=== PATIENT | female | born 2000 | race African-American/Black ===

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

== ENCOUNTER 2018-02-24 13:23 | Emergency (ER) | payer BC ==
[~2018-02-24] VITALS: Ht 168.9 cm; Wt 105.2 kg
[~2018-02-24 13:23] MED LIST changes: +AMOX1TAB61 PO; +CEPH-264 PO; +ONDA4TAB10 SL; +SULF1TAB24 PO
[2018-02-24 13:30] VITALS: BP 148/70
[2018-02-24] MEDS ORDERED: IBUPROFEN 600 MG TABLET. PO ONE (14:00)
--- NOTE | 2018-02-24 14:11 | RAD ---
3 view study of the left ankle Clinical indications: Twisting injury today with pain and swelling FINDINGS: Lateral soft tissue swelling is evident. No acute fracture or dislocation or osteolytic process is seen. The mortise ankle joint is intact. IMPRESSION: No acute fracture. Electronically signed by: Trae Meza MD (02/24/2018 2:08 PM) [facility]
--- NOTE | 2018-02-24 14:16 | PHYS DOC ---
Past Medical History Past Medical History: Asthma, Other Additional Past Medical Histor: Seasonal allergies. Past Surgical History: No Surgical History Alcohol Use: None Drug Use: None Adult General Chief Complaint Chief Complaint: ANKLE PROBLEM HPI HPI Patient is a 17 year old female who presents with coming down the stairs today and missed the last up and twisted her left ankle and heard a pop. This happened at 1300 today. She rates her pain a 9 out of 10. States she didn't take any medication for. She has no known drug allergies. She takes Claritin and use an albuterol inhaler if needed. Review of Systems Review of Systems Constitutional: Denies fever or chills [] Eyes: Denies change in visual acuity, redness, or eye pain [] HENT: Denies nasal congestion or sore throat [] Respiratory: Denies cough or shortness of breath [] Cardiovascular: No additional information not addressed in HPI [] GI: Denies abdominal pain, nausea, vomiting, bloody stools or diarrhea [] : Denies dysuria or hematuria [] Musculoskeletal: Denies back pain. Left ankle joint pain and swelling[] Integument: Denies rash or skin lesions [] Neurologic: Denies headache, focal weakness or sensory changes [] Endocrine: Denies polyuria or polydipsia [] All other systems were reviewed and found to be within normal limits, except as documented in this note. Current Medications Current Medications Current Medications Medications (Trade) Dose Ordered Sig/[facility] Start Time Stop Time Status Last Admin Dose Admin Ibuprofen (Motrin) 600 mg 1X ONCE 02/24/18 14:00 02/24/18 14:01 DC 02/24/18 13:56 600 MG Allergies Allergies Allergies Coded Allergies Type Severity Reaction Last Updated Verified No Known Drug Allergies 06/28/13 No Physical Exam Physical Exam Constitutional: Well developed, well nourished, no acute distress, non-toxic appearance. [] HENT: Normocephalic, atraumatic, bilateral external ears normal, oropharynx moist, no oral exudates, nose normal. [] Eyes: PERRLA, EOMI, conjunctiva normal, no discharge. [] Neck: Normal range of motion, no tenderness, supple, no stridor. [] Cardiovascular:Heart rate regular rhythm, no murmur [] Lungs & Thorax: Bilateral breath sounds clear to auscultation [] Abdomen: Bowel sounds normal, soft, no tenderness, no masses, no pulsatile masses. [] Skin: Warm, dry, no erythema, no rash. [] Back: No tenderness, no CVA tenderness. [] Extremities: Left ankle swelling, tenderness, and bruising. No cyanosis, no clubbing, ROM intact, no edema. [] Neurologic: Alert and oriented X 3, normal motor function, normal sensory function, no focal deficits noted. [] Psychologic: Affect normal, judgement normal, mood normal. [] Current Patient Data Vital Signs Vital Signs Date Time Temp Pulse Resp B/P (MAP) Pulse Ox O2 Delivery O2 Flow Rate FiO2 02/24/18 13:30 97.3 85 18 148/70 (96) 100 Room Air 97.3 EKG EKG [] Radiology/Procedures Radiology/Procedures Left ankle Impressions: [facility] [address] [place] [address] IMAGING REPORT Signed PATIENT: RENEE GORE ACCOUNT: [id number] : 2000 LOCATION: ER AGE: 17 SEX: F EXAM STATUS: REG ER ORD. PHYSICIAN: JAY NOYOLA APRN REASON: FALL PROCEDURE: ANKLE LEFT 3V 3 view study of the left ankle Clinical indications: Twisting injury today with pain and swelling FINDINGS: Lateral soft tissue swelling is evident. No acute fracture or dislocation or osteolytic process is seen. The mortise ankle joint is intact. IMPRESSION: No acute fracture. Electronically signed by: Héctor Meza MD (02/24/2018 2:08 PM) [facility] DICTATED and SIGNED BY: HÉCTOR MEZA MD DATE: 02/24/18 1403 Course & Med Decision Making Course & Med Decision Making Patient is a 17 year old female who presents with coming down the stairs today and missed the last up and twisted her left ankle and heard a pop. This happened at 1300 today. She rates her pain a 9 out of 10. States she didn't take any medication for. She has no known drug allergies. She takes Claritin and use an albuterol inhaler if needed. Her left ankle is very swollen and starting to bruise. Tender to palpation. She states it does not radiate and it is hard to her weight on the affected leg because of this. No deformity seen. Patient has a strong pedal pulse. Cap refill is less than 3 seconds. Alert and oriented. Ice is applied. She is given ibuprofen 600 mg in the ED. Left ankle x- ray shows no acute findings. Patient is to get a Tanvir wrap left ankle prescription for ibuprofen. Patient is to ice, elevate, and rest the left ankle until it is feeling better. Patient to follow-up with her primary care physician if she is not getting any better. [] Dragon Disclaimer Dragon Disclaimer This electronic medical record was generated, in whole or in part, using a voice recognition dictation system. Departure Departure Impression: Primary Impression: Ankle sprain Disposition: 01 HOME, SELF-CARE Condition: STABLE Referrals: OBINNA DUFFY MD (PCP) Patient Instructions: Ankle Sprain Additional Instructions: Follow-up with her primary care provider. HEENT ibuprofen or Tylenol for pain. Ice, elevate, and rest the affected ankle until the swelling and pain have diminished. Scripts Ibuprofen (IBUPROFEN) 600 Mg Tablet 600 MG PO PRN Q6HRS PRN for INFLAMMATION, #20 TAB Prov: JAY NOYOLA APRN 02/24/18 Problem Qualifiers Primary Impression: Ankle sprain Encounter type: initial encounter Involved ligament of ankle: unspecified ligament Laterality: left Qualified Codes: S93.402A - Sprain of unspecified ligament of left ankle, initial encounter JAY NOYOLA APRN Feb 24, 2018 14:16
[2018-02-24] MEDS ORDERED: IBUP-1007 PO (14:20)
== END 2018-02-24 14:37 | disposition home or self-care (01) ==
LOC: ER 13:23
DX: S93.402A Sprain of unspecified ligament of left ankle, initial encounter (principal); J45.909 Unspecified asthma, uncomplicated; X50.1XXA Overexertion from prolonged static or awkward postures, initial encounter; Y93.89 Activity, other specified; Y92.89 Other specified places as the place of occurrence of the external cause; Y99.8 Other external cause status
CPT/HCPCS: 73610; 99284

== ENCOUNTER 2018-03-18 23:43 | Emergency (ER) | payer BC ==
[~2018-03-18] VITALS: Ht 167.6 cm; Wt 102.5 kg
[~2018-03-18 23:43] MED LIST changes: +IBUP-1007 PO
[2018-03-19 00:26] LABS: BILIRUBIN,URINE NEGATIVE (NEG); CLARITY,URINE CLEAR; COLOR,URINE YELLOW; NITRITE,URINE NEGATIVE (NEG); PROTEIN,URINE NEGATIVE (NEG-TRACE)
[2018-03-19 00:39] LABS: BACTERIA,URINE MANY /HPF (0-FEW); SQUAMOUS EPITHELIAL CELL,UR MANY /LPF
[2018-03-19] MEDS ORDERED: ONDA4TAB12 PO (00:40)
--- NOTE | 2018-03-19 00:40 | PHYS DOC ---
Past Medical History Past Medical History: Asthma, Other Additional Past Medical Histor: Seasonal allergies. Past Surgical History: No Surgical History Alcohol Use: None Drug Use: None Adult General Chief Complaint Chief Complaint: FEVER HPI HPI Patient is a 17 year old [f__sex] who presents with [] Review of Systems Review of Systems Constitutional: Denies fever or chills [] Eyes: Denies change in visual acuity, redness, or eye pain [] HENT: Denies nasal congestion or sore throat [] Respiratory: Denies cough or shortness of breath [] Cardiovascular: No additional information not addressed in HPI [] GI: Denies abdominal pain, nausea, vomiting, bloody stools or diarrhea [] : Denies dysuria or hematuria [] Musculoskeletal: Denies back pain or joint pain [] Integument: Denies rash or skin lesions [] Neurologic: Denies headache, focal weakness or sensory changes [] Endocrine: Denies polyuria or polydipsia [] All other systems were reviewed and found to be within normal limits, except as documented in this note. Current Medications Current Medications Current Medications Medications (Trade) Dose Ordered Sig/Shiva Start Time Stop Time Status Last Admin Dose Admin Dexamethasone (Decadron) 10 mg 1X ONCE 03/19/18 00:45 03/19/18 00:46 DC 03/19/18 00:45 10 MG Ondansetron HCl (Zofran Odt) 4 mg 1X ONCE 03/19/18 00:45 03/19/18 00:46 DC 03/19/18 00:45 4 MG Allergies Allergies Allergies Coded Allergies Type Severity Reaction Last Updated Verified No Known Drug Allergies 06/28/13 No Physical Exam Physical Exam Constitutional: Well developed, well nourished, no acute distress, non-toxic appearance. [] HENT: Normocephalic, atraumatic, bilateral external ears normal, oropharynx moist, no oral exudates, nose normal. [] Eyes: PERRLA, EOMI, conjunctiva normal, no discharge. [] Neck: Normal range of motion, no tenderness, supple, no stridor. [] Cardiovascular:Heart rate regular rhythm, no murmur [] Lungs & Thorax: Bilateral breath sounds clear to auscultation [] Abdomen: Bowel sounds normal, soft, no tenderness, no masses, no pulsatile masses. [] Skin: Warm, dry, no erythema, no rash. [] Back: No tenderness, no CVA tenderness. [] Extremities: No tenderness, no cyanosis, no clubbing, ROM intact, no edema. [] Neurologic: Alert and oriented X 3, normal motor function, normal sensory function, no focal deficits noted. [] Psychologic: Affect normal, judgement normal, mood normal. [] Current Patient Data Vital Signs Vital Signs Date Time Temp Pulse Resp B/P (MAP) Pulse Ox O2 Delivery O2 Flow Rate FiO2 03/19/18 01:19 70 16 104/59 (74) 95 Room Air 03/18/18 23:55 97.7 97.7 Lab Values Laboratory Tests Test 03/18/18 23:45 03/18/18 23:56 03/19/18 00:31 Urine Collection Type Void Urine Color Yellow Urine Clarity Clear Urine pH 6.0 Urine Specific [place] >=1.030 Urine Protein Negative mg/dL (NEG-TRACE) Urine Glucose (UA) Negative mg/dL (NEG) Urine Ketones (Stick) 15 mg/dL (NEG) Urine Blood Negative (NEG) Urine Nitrite Negative (NEG) Urine Bilirubin Negative (NEG) Urine Urobilinogen Dipstick 1.0 mg/dL (0.2 mg/dL) Urine Leukocyte Esterase Small (NEG) Urine RBC 3-5 /HPF (0-2) Urine WBC 5-10 /HPF (0-4) Urine Squamous Epithelial Cells Many /LPF Urine Bacteria Many /HPF (0-FEW) POC Urine HCG, Qualitative Hcg positive (Negative) Influenza Type A Antigen Negative (NEGATIVE) Influenza Type B Antigen Negative (NEGATIVE) EKG EKG [] Radiology/Procedures Radiology/Procedures [] Course & Med Decision Making Course & Med Decision Making Pertinent Labs and Imaging studies reviewed. (See chart for details) [] Dragon Disclaimer Dragon Disclaimer This electronic medical record was generated, in whole or in part, using a voice recognition dictation system. Departure Departure Impression: Primary Impression: Upper respiratory infection Additional Impressions: History of fever Nausea and vomiting in Disposition: 01 HOME, SELF-CARE Condition: STABLE Referrals: OBINNA DUFFY MD (PCP) Patient Instructions: ABCs of , Fever, Adult, [id number], Nausea and Vomiting, Eiex-[id number], Upper Respiratory Infection, Adult, Rqbi-[id number] Scripts Vits W-Ca,Fe,Fa(<1MG) ( VITAMINS) 1 Each Tablet 1 TAB PO DAILY, #30 TAB 11 Refills Prov: YODIT OLEARY DO 03/19/18 Ondansetron (ONDANSETRON ODT) 4 Mg Tab.rapdis 1 TAB PO PRN Q6-8HRS for VOMITING, #16 TAB Prov: YODIT OLEARY DO 03/19/18 Problem Qualifiers Primary Impression: Upper respiratory infection URI type: unspecified URI Qualified Codes: J06.9 - Acute upper respiratory infection, unspecified Additional Impressions: Weeks of gestation: unspecified Qualified Codes: Z34.90 - Encounter for supervision of normal , unspecified, unspecified trimester YODIT OLEARY DO Mar 19, 2018 00:40
[2018-03-19] MEDS ORDERED: DEXAMETHASONE 4 MG TABLET PO ONE (00:45)
[2018-03-19] MEDS ORDERED: ONDANSETRON ODT 4 MG TAB.RAPDIS. PO ONE (00:45)
[2018-03-19 01:19] VITALS: BP 104/59
[2018-03-19 01:38] LABS: INFLUENZA A PATIENT NEGATIVE (NEGATIVE); INFLUENZA B PATIENT NEGATIVE (NEGATIVE)
[2018-03-19] MEDS ORDERED: PREN1TAB58 PO (01:42)
== END 2018-03-19 01:45 | disposition home or self-care (01) ==
LOC: ER 23:43
DX: O99.519 Diseases of the respiratory system complicating pregnancy, unspecified trimester (principal); J06.9 Acute upper respiratory infection, unspecified; O21.8 Other vomiting complicating pregnancy; J45.909 Unspecified asthma, uncomplicated; Z3A.00 Weeks of gestation of pregnancy not specified
CPT/HCPCS: 81001; 81025; 87086; 87804; 99283; J8540; Q0162

== ENCOUNTER 2019-08-13 20:38 | Emergency (ER) | payer BC, OTHER ==
[~2019-08-13] VITALS: Ht 162.6 cm; Wt 115.0 kg
[~2019-08-13 20:38] MED LIST changes: +ONDA4TAB12 PO; +PREN1TAB58 PO
[2019-08-13 21:00] VITALS: BP 155/79
--- NOTE | 2019-08-13 21:11 | PHYS DOC ---
Past Medical History Past Medical History: Asthma, Other Additional Past Medical Histor: Seasonal allergies. Past Surgical History: No Surgical History Smoking Status: Never Smoker Alcohol Use: None Drug Use: None General Adult EDM: Chief Complaint: CHEST WALL PAIN HPI: HPI: Patient is a 18 year old female who presents with complaint of intermittent chest wall pain for the last couple days that she describes as sharp and stabbing in nature. She states that it's worse with deep breathing when this pain is present but she currently has no pain. Patient also complains about a smelly yellow vaginal discharge that has been present for the last few days. She denies any abdominal pain, nausea or vomiting. She also denies any fever.[] Review of Systems: Review of Systems: Constitutional: Denies fever or chills. [] Respiratory: Denies cough or shortness of breath. [] Cardiovascular: Complains of intermittent chest wall pain. [] GI: Denies abdominal pain, nausea, vomiting, bloody stools or diarrhea. [] : Denies dysuria. Complains of yellow vaginal discharge [] Integument: Denies rash. [] Neurologic: Denies headache, focal weakness or sensory changes. [] A full 10 point review of systems has been reviewed and is otherwise negative. Heart Score: Risk Factors: Risk Factors: DM, Current or recent (<one month) smoker, HTN, HLP, family history of CAD, obesity. Risk Scores: Score 0 - 3: 2.5% MACE over next 6 weeks - Discharge Home Score 4 - 6: 20.3% MACE over next 6 weeks - Admit for Clinical Observation Score 7 - 10: 72.7% MACE over next 6 weeks - Early Invasive Strategies Allergies: Allergies: Allergies Coded Allergies Type Severity Reaction Last Updated Verified No Known Drug Allergies 06/28/13 No Physical Exam: PE: Constitutional: Well developed, well nourished, no acute distress, non-toxic appearance. [] HENT: Normocephalic, atraumatic, bilateral external ears normal, oropharynx moist, no oral exudates, nose normal. [] Eyes: PERRLA, EOMI, conjunctiva normal, no discharge. [] Neck: Normal range of motion, no tenderness, supple, no stridor. [] Cardiovascular:Heart rate regular rhythm, no murmur [] Lungs & Thorax: Bilateral breath sounds clear to auscultation [] Abdomen: Bowel sounds normal, soft, no tenderness. [] Skin: Warm, dry, no erythema, no rash. [] Extremities: No tenderness, no cyanosis, no clubbing, ROM intact, no edema. [] Neurologic: Alert and oriented X 3, no focal deficits noted. [] EKG: EKG: [] Radiology/Procedures: Radiology/Procedures: [] Course & Med Decision Making: Course & Med Decision Making Pertinent Labs and Imaging studies reviewed. (See chart for details) Patient provided with swabs for self swabbing for STD testing and instructed on how to obtain. Swabs sent for analysis. [employer] Disclaimer: [employer] Disclaimer: This electronic medical record was generated, in whole or in part, using a voice recognition dictation system. Departure Departure Impression: Primary Impression: Chest wall pain Additional Impression: Bacterial vaginosis Disposition: 01 HOME, SELF-CARE Condition: STABLE Referrals: OBINNA DUFFY MD (PCP) Patient Instructions: Bacterial Vaginosis, Chest Wall Pain Scripts Metronidazole (FLAGYL) 500 Mg Tablet 1 TAB PO BID, #14 TAB Prov: VICKY ACUÑA Jr. DO 08/13/19 Diclofenac Sodium (DICLOFENAC SODIUM) 50 Mg Tablet. 1 TAB PO BID PRN for PAIN, #20 TAB Prov: VICKY ACUÑA Jr. DO 08/13/19 VICKY ACUÑA Jr. DO Aug 13, 2019 21:11
[2019-08-13] MEDS: cefTRIAXone IM 250 MG VIAL IM ONE (21:29)
[2019-08-13] MEDS: AZITHROMYCIN 250 MG TABLET. PO ONE (21:29)
[2019-08-13] MEDS ORDERED: METR500T PO (21:53)
[2019-08-13] MEDS ORDERED: DICL50TA4 PO (21:53)
== END 2019-08-13 22:05 | disposition home or self-care (01) ==
LOC: ER 20:38
DX: R07.89 Other chest pain (principal); N76.0 Acute vaginitis; B96.89 Other specified bacterial agents as the cause of diseases classified elsewhere; J45.909 Unspecified asthma, uncomplicated
CPT/HCPCS: 81025; 87491; 87591; 96372; 99283; J0696; Q0111

== ENCOUNTER 2019-12-26 14:57 | Emergency (ER) | payer MEDICAID, OTHER ==
[~2019-12-26] VITALS: Ht 162.6 cm; Wt 116.0 kg
[~2019-12-26 14:57] MED LIST changes: +DICL50TA4 PO
[2019-12-26 16:30] VITALS: BP 136/89
--- NOTE | 2019-12-26 17:05 | PHYS DOC ---
Past Medical History Past Medical History: Asthma, Other Additional Past Medical Histor: Seasonal allergies. Past Surgical History: No Surgical History Smoking Status: Never Smoker Alcohol Use: None Drug Use: None General Adult EDM: Chief Complaint: ALLERGIES HPI: HPI: Patient is a 19 year old female who presents the ED today complaining of body aches, chills, cough, runny nose, symptoms began yesterday. Review of Systems: Review of Systems: Constitutional: Reports body aches,denies fever or chills. [] Eyes: Denies change in visual acuity. [] HENT: Reports nasal congestion, denies sore throat. [] Respiratory: Reports cough, denies shortness of breath. [] Cardiovascular: Denies chest pain or edema. [] GI: Denies abdominal pain, nausea, vomiting, bloody stools or diarrhea. [] : Denies dysuria. [] Musculoskeletal: Denies back pain or joint pain. [] Integument: Denies rash. [] Neurologic: Denies headache, focal weakness or sensory changes. [] Endocrine: Denies polyuria or polydipsia. [] Lymphatic: Denies swollen glands. [] Psychiatric: Denies depression or anxiety. [] Heart Score: Risk Factors: Risk Factors: DM, Current or recent (<one month) smoker, HTN, HLP, family history of CAD, obesity. Risk Scores: Score 0 - 3: 2.5% MACE over next 6 weeks - Discharge Home Score 4 - 6: 20.3% MACE over next 6 weeks - Admit for Clinical Observation Score 7 - 10: 72.7% MACE over next 6 weeks - Early Invasive Strategies Allergies: Allergies: Allergies Coded Allergies Type Severity Reaction Last Updated Verified No Known Drug Allergies 06/28/13 No Physical Exam: PE: Constitutional: Well developed, well nourished, no acute distress, non-toxic appearance. [] HENT: Normocephalic, atraumatic, bilateral external ears normal, oropharynx moist, no oral exudates, nose normal. [] Eyes: PERRLA, EOMI, conjunctiva normal, no discharge. [] Neck: Normal range of motion, no tenderness, supple, no stridor. [] Cardiovascular:Heart rate regular rhythm, no murmur [] Lungs & Thorax: Bilateral breath sounds clear to auscultation [] Abdomen: Bowel sounds normal, soft, no tenderness, no masses, no pulsatile masses. [] Skin: Warm, dry, no erythema, no rash. [] Back: No tenderness, no CVA tenderness. [] Extremities: No tenderness, no cyanosis, no clubbing, ROM intact, no edema. [] Neurologic: Alert and oriented X 3, normal motor function, normal sensory function, no focal deficits noted. [] Psychologic: Affect normal, judgement normal, mood normal. [] EKG: EKG: [] Radiology/Procedures: Radiology/Procedures: [] Course & Med Decision Making: Course & Med Decision Making Pertinent Labs and Imaging studies reviewed. (See chart for details) This is a 19-year-old female patient presenting to the ED today with body aches, chills, cough and nasal congestion since yesterday. Patient was tested for COVID19. Gucn-imy-[id number] medications recommended for her symptoms. Discharge to home. Dragon Disclaimer: Dragon Disclaimer: This electronic medical record was generated, in whole or in part, using a voice recognition dictation system. Departure Departure Impression: Primary Impression: Cough Additional Impression: URI (upper respiratory infection) Qualified Codes: J06.9 - Acute upper respiratory infection, unspecified Disposition: HOME, SELF-CARE Condition: STABLE Referrals: OBINNA DUFFY MD (PCP) follow up in one week Patient Instructions: Cough, Adult, Pheg-fh-Byxc, Upper Respiratory Infection, Adult, Blgc-bz-Lykh Additional Instructions: You were tested for COVID19. Please quarantine yourself until you hear from us with test results. Please push fluids, maintain good hand hygiene, take [id number] medications as needed for your symptoms. Scripts Benzonatate (TESSALON PERLE) 100 Mg Capsule 1 CAP PO TID, #21 CAP Prov: RIC WARD APRN 12/26/19 Prednisone (PREDNISONE) 50 Mg Tablet 1 TAB PO DAILY, #5 TAB Prov: RIC WARD APRN 12/26/19 Justicifation of Admission Dx: Justifications for Admission: Justification of Admission Dx: N/A RIC WARD APRN Dec 26, 2019 17:05
[2019-12-26] MEDS ORDERED: PRED50TA PO (17:10)
[2019-12-26] MEDS ORDERED: BENZ100C PO (17:10)
--- NOTE | 2019-12-28 15:19 | NUR ---
IP: Notified pt of negative COVID test. Pt verbalized understanding.
== END 2019-12-26 17:26 | disposition home or self-care (01) ==
LOC: ER 14:57
DX: J06.9 Acute upper respiratory infection, unspecified (principal); Z20.828 Contact with and (suspected) exposure to other viral communicable diseases; R09.89 Other specified symptoms and signs involving the circulatory and respiratory systems; R68.83 Chills (without fever); J45.909 Unspecified asthma, uncomplicated
CPT/HCPCS: 99283; U0003

== ENCOUNTER 2021-09-02 18:37 | Emergency (ER) | payer MEDICAID, OTHER ==
[~2021-09-02] VITALS: Ht 162.6 cm; Wt 110.4 kg
[~2021-09-02 18:37] MED LIST changes: +BENZ100C PO; +PRED50TA PO
[2021-09-02 18:43] VITALS: BP 122/57
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
[2021-09-02] MEDS ORDERED: oxyCODONE/APAP 5/325 1 TAB TABLET PO ONE (20:15)
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
== END 2021-09-02 20:55 | disposition home or self-care (01) ==
LOC: ER 18:37
DX: S53.104D Unspecified dislocation of right ulnohumeral joint, subsequent encounter (principal); J45.909 Unspecified asthma, uncomplicated; Y08.89XD Assault by other specified means, subsequent encounter
CPT/HCPCS: 29105; 29125; 73080; 99283

== ENCOUNTER → 2021-09-13 | Outpatient (CLI) | payer OTHER ==
[2021-09-02 18:43] VITALS: BP 122/57
--- NOTE | 2021-09-13 17:35 | KCIC ---
CT scan of the right elbow without contrast 09/13/2021 CLINICAL HISTORY: History of right elbow dislocation. TECHNIQUE: Unenhanced, contiguous, 0.625 mm axial sections were obtained through the right elbow. 2 m m reconstructed sagittal, axial and coronal images were obtained. One or more of the following individualized dose reduction techniques were utilized for this study: 1. Automated exposure control. 2. Adjustment of the mA and/or kV according to patient size. 3. Use of iterative reconstruction technique. FINDINGS: Comparison is made to radiographs of the right elbow dated 09/07/2021. An external splint is seen surrounding the right elbow. No dislocation is seen. A comminuted fracture of the olecranon is seen. The fracture fragments measure 1 mm to 4 mm in size. They are minimally di splaced anteriorly. A comminuted fracture seen involving the posterior lateral aspect of the capitell um. Fracture fragments measure 1 mm to 5 mm in size. They are mildly displaced posteriorly, inferiorl y and laterally. No additional fracture is seen. The radial head is intact. IMPRESSION: Comminuted fractures are seen involving the olecranon and capitellum as discussed above. Electronically signed by: Efe Smith MD (09/13/2021 5:32 PM) [id number]
== END ==
LOC: KCIC CT 12:37
PROVIDERS: ATTEND Orthopaedic Surgery Sports Medicine
DX: S52.021A Displaced fracture of olecranon process without intraarticular extension of right ulna, initial encounter for closed fracture (principal); S53.104A Unspecified dislocation of right ulnohumeral joint, initial encounter; X58.XXXA Exposure to other specified factors, initial encounter; Y93.89 Activity, other specified; Y92.89 Other specified places as the place of occurrence of the external cause; Y99.8 Other external cause status
CPT/HCPCS: 73200